=== PATIENT | male | born 1960 | race Caucasian/White ===

== ENCOUNTER 2022-01-28 07:31 | Outpatient (REF) | payer OTHER, SELFPAY ==
[2022-01-28 12:05] LABS: MANUAL DIFF FLAG NO
[2022-01-28 12:06] LABS: Basophils Percent Auto 0.5 % (0-2); Eosinophils Absolute Auto 0.3 X10*3/uL (0.0-0.4); Eosinophils Percent Auto 5.9 % (0-4); Hematocrit 45.4 % (42.0-52.0); Hemoglobin 15.5 g/dl (14.0-18.0); Imm Gran Abs Auto 0.01 X10*3/uL (0.00-0.03); Imm Gran Pct Auto 0.2 % (0.0-0.4); Lymphocytes Absolute Auto 1.8 X10*3/uL (1.2-4.9); Lymphocytes Percent Auto 32.9 % (20-40); Mean Corpuscular HGB Conc 34.1 g/dl (31.0-36.0); Mean Corpuscular Hemoglobin 28.4 pg (27.0-33.0); Mean Corpuscular Volume 83.3 fL (80.0-98.0); Mean Platelet Volume 9.9 fL (9.4-12.4); Monocytes Absolute Auto 0.6 X10*3/uL (0.1-1.2); Monocytes Percent Auto 11.1 % (2-11); Neutrophils Absolute Auto 2.8 x10*3/uL (2.0-8.3); Neutrophils Percent Auto 49.4 % (45-73); Platelet Count 278 X10*3/uL (160-400); Red Blood Count 5.45 X10*6/uL (4.60-5.80); Red Cell Distribution Width 12.5 % (11.0-16.0); White Blood Count 5.6 X10*3/uL (4.8-10.8)
[2022-01-28 12:29] LABS: Alanine Aminotransferase 33 U/L (0-40); Albumin Level 4.5 g/dL (3.5-5.0); Alkaline Phosphatase 92 U/L (39-117); Anion Gap 16 (12-20); Aspartate Amino Transferase 28 U/L (5-37); Bilirubin Total 2.2 mg/dL (0.0-1.0); Blood Urea Nitrogen 23 mg/dL (9-16); Calcium 9.6 mg/dL (8.4-10.2); Carbon Dioxide 29 mmol/L (22-29); Chloride 98 mmol/L (96-108); Cholesterol 128 mg/dL; Estimated Glomerular Filt Rate > 60; Glucose Fasting 96 mg/dL (60-99); HDL Cholesterol 45 mg/dL; LDL Cholesterol Calculated 67 mg/dl; Potassium 4.2 mmol/L (3.3-5.1); Sodium 139 mmol/L (135-145); Total Protein 6.9 g/dL (6.5-8.0); Triglycerides 84 mg/dL
[2022-01-28 12:38] LABS: Estimated Average Glucose 105 mg/dL; Hemoglobin A1c % 5.3 %
[2022-01-28 12:52] LABS: TSH reflex Free T4 1.47 uIU/mL (0.32-4.0)
[2022-02-02 16:26] LABS: Vitamin D 25-OH, D2 <4 ng/mL; Vitamin D 25-OH, D3 25 ng/mL; Vitamin D 25-OH, Total 25 ng/mL (30-100)
== END 2022-01-28 07:32 | disposition home or self-care (01) ==
LOC: HO.HMGCLDS 07:31
PROVIDERS: PCP Internal Medicine; Visit Provider Internal Medicine
DX: R73.03 Prediabetes (principal); I10 Essential (primary) hypertension; E78.9 Disorder of lipoprotein metabolism, unspecified; E55.9 Vitamin D deficiency, unspecified; Z76.89 Persons encountering health services in other specified circumstances
CPT/HCPCS: 36415; 80053; 80061; 82306; 83036; 84443; 85025

== ENCOUNTER 2022-07-14 08:42 | Outpatient (REF) | payer OTHER, SELFPAY ==
[2022-07-14 12:13] LABS: Estimated Average Glucose 108 mg/dL; Hemoglobin A1c % 5.4 %
[2022-07-14 12:20] LABS: Alanine Aminotransferase 46 U/L (0-40); Albumin Level 4.5 g/dL (3.5-5.0); Alkaline Phosphatase 100 U/L (39-117); Anion Gap 12 (12-20); Aspartate Amino Transferase 29 U/L (5-37); Blood Urea Nitrogen 17 mg/dL (9-16); Calcium 9.6 mg/dL (8.4-10.2); Carbon Dioxide 30 mmol/L (22-29); Chloride 102 mmol/L (96-108); Cholesterol 157 mg/dL; Estimated Glomerular Filt Rate > 60; Glucose Fasting 92 mg/dL (60-99); HDL Cholesterol 43 mg/dL; LDL Cholesterol Calculated 90 mg/dl; Potassium 4.1 mmol/L (3.3-5.1); Sodium 140 mmol/L (135-145); Total Protein 6.8 g/dL (6.5-8.0); Triglycerides 124 mg/dL
== END 2022-07-14 08:43 | disposition home or self-care (01) ==
LOC: HO.HMGCLDS 08:42
PROVIDERS: PCP Internal Medicine; Visit Provider Internal Medicine
DX: E78.9 Disorder of lipoprotein metabolism, unspecified (principal); R73.03 Prediabetes; I10 Essential (primary) hypertension
CPT/HCPCS: 36415; 80053; 80061; 83036

== ENCOUNTER 2023-01-09 07:27 | Outpatient (REF) | payer OTHER, SELFPAY ==
[2023-01-09 09:32] LABS: Alanine Aminotransferase 30 U/L (0-40); Albumin Level 4.5 g/dL (3.5-5.0); Alkaline Phosphatase 99 U/L (39-117); Anion Gap 14 (12-20); Aspartate Amino Transferase 23 U/L (5-37); Blood Urea Nitrogen 18 mg/dL (9-16); Calcium 9.4 mg/dL (8.4-10.2); Carbon Dioxide 27 mmol/L (22-29); Chloride 104 mmol/L (96-108); Cholesterol 133 mg/dL (<200); Estimated Glomerular Filt Rate > 60; Glucose Fasting 95 mg/dL (60-99); Glucose Random 95 mg/dL (60-115); HDL Cholesterol 48 mg/dL (>40); LDL Cholesterol Calculated 72 mg/dL (<100); Potassium 3.9 mmol/L (3.3-5.1); Sodium 141 mmol/L (135-145); Triglycerides 66 mg/dL (<150)
[2023-01-14 12:53] LABS: Beta-2 Glycoprotein IgA <2.0 U/mL (<20.0); Beta-2 Glycoprotein IgG 4.5 U/mL (<20.0); Beta-2 Glycoprotein IgM 71.7 U/mL (<20.0)
== END 2023-01-09 07:28 | disposition home or self-care (01) ==
LOC: HO.LAB 07:27
PROVIDERS: PCP Internal Medicine; Visit Provider Internal Medicine
DX: I10 Essential (primary) hypertension (principal); R73.03 Prediabetes; E78.9 Disorder of lipoprotein metabolism, unspecified
CPT/HCPCS: 36415; 80053; 80061; 86146

== ENCOUNTER 2023-01-12 08:15 | Outpatient (AMB) | payer OTHER, SELFPAY ==
[2023-01-12 08:25] VITALS: BP 136/80; PULSE 53; O2SAT 97; BMI 27.6
--- NOTE | 2023-01-12 08:25 | MHC.PC.OV ---
Vital Signs 01/12/23 08:25 Height 5 ft 7 in Weight 176 lb 4 oz BMI 27.6 BP 136/80 Blood Pressure Location Lt brachial Pulse 53 Pulse Source Pulse Oximeter Pulse Oximetry (%) 97 Oxygen Delivery Method Room Air Intake Visit Reasons: 6m follow up Allergies Penicillins Adverse Reaction (Mild, Verified 01/12/23 08:28) Hives Medication List - Last Reconciled 01/12/23 by Luis Cifuentes MD atorvastatin 20 mg PO DAILY lisinopril-hydrochlorothiazide 10-12.5 mg 1 tab PO DAILY Tobacco use date assessed: 01/12/23 Fall risk assessment: No Falls in past year Last assessed Fall Risk: 01/12/23 Dental Screening Dental Screen Date: 01/12/23 Did you have a dental visit in the last 12 months?: Yes Did you have a dental problem in the last 6 months where you did not have access to dental care?: No Was dental information given to patient?: Patient has dentist HPI 6m follow up HPI Details Patient is 62-year-old gentlemen came in today for his regular 6 month follow-up appointment Patient is doing well he is taking all his medications Blood pressure is stable Labs done recently reviewed with the patient his total bilirubin continued to be elevated because of keep it syndrome Rest of labs are within normal limit. 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 I have added x-ray with his next set of lab in 6 months. Patient comes for follow-up every 6 months and he has appointment in June for physical examination. [facility] Social History Housing: House Patient Tobacco Use Status: Former Tobacco user e-Cigarette/Vaping Use: Never Used service: No Current occupational status: employed Cognitive needs: No Hearing needs: No Vision needs: Yes Questionnaire PHQ-9 Over the last 2 weeks, how often have you been bothered by any of the following problems? 1. Little interest or pleasure in doing things: not at all 2. Feeling down, depressed, or hopeless: not at all 3. Trouble falling or staying asleep, or sleeping too much: several days 4. Feeling tired or having little energy: not at all 5. Poor appetite or overeating: not at all 6. Feeling bad about yourself - or that you are a failure or have let yourself or your family down: not at all 7. Trouble concentrating on things, such as reading the newspaper or watching television: not at all 8. Moving or speaking so slowly that other people could have noticed. Or the opposite - being so fidgety or restless that you have been moving around a lot more than usual: not at all 9. Thoughts that you would be better off or of hurting yourself in some way: not at all Total score: 1 Depression Screening Interpretation: Negative Depression Screening Done: Yes 84728 - PHQ-9 Billing: Yes Source: Developed by Drs. Abhijeet Carlisle, Saloni Spencer, Tevin Locke and colleagues, with an educational soniya from [employer]. Thrive Questionnaire Date Thrive assessed: 01/21/22 AUDIT C Alcohol Use Questionnaire (AUDIT-C) 1. How often do you have a drink containing alcohol?: Monthly or less 2. How many drinks containing alcohol do you have on a typical day when you are drinking?: 1 or 2 3. How often do you have six or more drinks on one occasion?: Never Total Score: 1 Score Reviewed/Action Taken: Yes BELA-7 AMB Questionnaire BELA-7 Date BELA - 7 assessed: 01/21/22 Source: Developed by Drs. Abhijeet Carlisle, Saloni Spencer, Tevin Locke and colleagues, with an educational soniya from [employer]. Review of Systems Const Denies chills and Denies fever(s) ENT Denies epistaxis and Denies nasal discharge Card Denies chest pain Resp Denies chest congestion, Denies cough and Denies hemoptysis GI Denies diarrhea and Denies nausea Skin/Breast Denies rash Neuro Reports no additional complaints Psych Reports no additional complaints Endo Reports no additional complaints Physical exam (Primary Care) Vital Signs: Last Vital Signs Pulse 53 01/12/23 08:25 BP 136/80 01/12/23 08:25 Pulse Ox 97 01/12/23 08:25 Oxygen Delivery Method Room Air 01/12/23 08:25 BMI result Body Mass Index 27.6 Tobacco/Smoking Status: Tobacco use Status Tobacco use date assessed 01/12/23 01/12/23 08:28 Patient Tobacco Use Status Former Tobacco user 01/12/23 08:28 e-Cigarette/Vaping Use Never Used 01/12/23 08:28 Depression Screening Interpretation: Negative Thrive Assessment: Date of Thrive Assessment Date Thrive assessed 01/21/22 01/12/23 08:28 Const General: cooperative, comfortable and no acute distress Orientation/consciousness: patient oriented x3 HENMT Head: Yes normocephalic Eyes General: appearance normal, both eyes and all related structures Neck Neck: Yes supple Resp Effort & Inspection: normal respiratory effort, no cough and no stridor Cardio Rhythm: regular rhythm Heart sounds: S1 normal heart sound present and S2 normal heart sound present Back/Spine/Pelvis Other: No back pain at this time Skin General skin exam: turgor normal Neuro Other: Straight leg negative General: patient oriented x3, tone normal and moves all extremities Extrem Right lower extremity: no edema Left lower extremity: no edema Assessment and Plan Assessment & Plan (1) Hypertension, essential: Code(s): I10 - Essential (primary) hypertension (2) Lipid disorder: Code(s): E78.9 - Disorder of lipoprotein metabolism, unspecified (3) Pre-diabetes: Code(s): R73.03 - Prediabetes (4) Gilbert syndrome: Code(s): E80.4 - Gilbert syndrome (5) Lumbar paraspinal muscle spasm: Code(s): M62.830 - Muscle spasm of back Plan Patient is 62-year-old gentlemen came in today for his regular 6 month follow-up appointment Patient is doing well he is taking all his medications Blood pressure is stable Labs done recently reviewed with the patient his total bilirubin continued to be elevated because of keep it syndrome Rest of labs are within normal limit. 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 I have added x-ray with his next set of lab in 6 months. Patient comes for follow-up every 6 months and he has appointment in June for physical examination. Orders: Orders Complete Blood Count Auto Diff Today E78.9 - Disorder of lipoprotein metabolism, unspecified, E80.4 - Gilbert syndrome, I10 - Essential (primary) hypertension, R73.03 - Prediabetes [facility] [place]. Panel Fast Today E78.9 - Disorder of lipoprotein metabolism, unspecified, E80.4 - Gilbert syndrome, I10 - Essential (primary) hypertension, R73.03 - Prediabetes Lipid Panel 6 Months E78.9 - Disorder of lipoprotein metabolism, unspecified, E80.4 - Gilbert syndrome, I10 - Essential (primary) hypertension, R73.03 - Prediabetes XR lumbar spine 2-3V Today M62.830 - Muscle spasm of back Coding Level of Care Code Est Pt Level 4 (55454) Diagnoses Hypertension, essential I10 Lipid disorder E78.9 Pre-diabetes R73.03 Gilbert syndrome E80.4 Lumbar paraspinal muscle spasm M62.830
== END 2023-01-12 08:49 | disposition home or self-care (01) ==
PROVIDERS: Visit Provider Internal Medicine
DX: I10 Essential (primary) hypertension (principal); E78.9 Disorder of lipoprotein metabolism, unspecified; R73.03 Prediabetes; E80.4 Gilbert syndrome; M62.830 Muscle spasm of back
CPT/HCPCS: 99214

== ENCOUNTER 2023-01-28 09:06 | Outpatient (AMB) | payer OTHER, SELFPAY ==
--- NOTE | 2023-01-28 08:55 | A.OFFPC_ITS ---
Intake Visit Reasons: Discuss Labs~ Allergies Penicillins Adverse Reaction (Mild, Verified 01/28/23 08:56) Hives Medication List - Last Reconciled 01/28/23 by Luis Cifuentes MD atorvastatin 20 mg PO DAILY lisinopril-hydrochlorothiazide 10-12.5 mg 1 tab PO DAILY Tobacco use date assessed: 01/28/23 Fall risk assessment: No Falls in past year Last assessed Fall Risk: 01/28/23 Dental Screening Dental Screen Date: 01/28/23 Did you have a dental visit in the last 12 months?: Yes Did you have a dental problem in the last 6 months where you did not have access to dental care?: No Was dental information given to patient?: Patient has dentist HPI Discuss Labs~ HPI Details Patient is 62-year-old gentleman we set up this telephone visit to talk about level treat test Which I am not sure who ordered. We tried to figure it out through lab , and even they could not tell us. However the test is abnormal so we have to address it. It is beta 2 GPI IgM which is elevated. Patient have no history of clotting disorder his platelets are within normal limit I am repeating the test again if it came back abnormal again patient will have consultation with Hematology. There is a possibility that lip artery has made a mistake, patient tells me the day he went for blood test there were lot of problems going on with their system. [facility] Social History Housing: House Patient Tobacco Use Status: Former Tobacco user e-Cigarette/Vaping Use: Never Used service: No Current occupational status: employed Cognitive needs: No Hearing needs: No Vision needs: Yes Questionnaire Thrive Questionnaire Date Thrive assessed: 01/21/22 AUDIT C Alcohol Use Questionnaire (AUDIT-C) 1. How often do you have a drink containing alcohol?: Monthly or less 2. How many drinks containing alcohol do you have on a typical day when you are drinking?: 1 or 2 3. How often do you have six or more drinks on one occasion?: Never Total Score: 1 Score Reviewed/Action Taken: Yes BELA-7 AMB Questionnaire BELA-7 Date BELA - 7 assessed: 01/21/22 Source: Developed by Drs. Abhijeet Carlisle, Saloni Spencer, Tevin Locke and colleagues, with an educational soniya from [employer]. Review of Systems Const All systems reviewed & are unremarkable except as noted in HPI and below Physical exam (Primary Care) Tobacco/Smoking Status: Tobacco use Status Tobacco use date assessed 01/28/23 01/28/23 08:58 Patient Tobacco Use Status Former Tobacco user 01/28/23 08:58 e-Cigarette/Vaping Use Never Used 01/28/23 08:58 Thrive Assessment: Date of Thrive Assessment Date Thrive assessed 01/21/22 01/28/23 08:58 Telehealth Telehealth Location of provider rendering services: practice address Location of patient: address on file Patient Identification confirmed using: Name, : Yes Telehealth method: voice only Patient verbally consented to treatment: Yes Patient verbally consented to billing insurance company: Yes Patient informed of any privacy concerns related to visit: Yes Minutes spent on Phone/Video with Pt.: 12 Results Reviewed Results Reviewed: Laboratory Tests 01/09/23 08:13 Beta-2-GPI IgM Ab 71.7 H Assessment and Plan Assessment & Plan (1) Abnormal laboratory test: Code(s): R89.9 - Unspecified abnormal finding in specimens from other organs, systems and tissues Plan Patient is 62-year-old gentleman we set up this telephone visit to talk about level treat test Which I am not sure who ordered. We tried to figure it out through lab , and even they could not tell us. However the test is abnormal so we have to address it. It is beta 2 GPI IgM which is elevated. Patient have no history of clotting disorder his platelets are within normal limit I am repeating the test again if it came back abnormal again patient will have consultation with Hematology. There is a possibility that lip artery has made a mistake, patient tells me the day he went for blood test there were lot of problems going on with their system. Orders: Orders Beta-2 Glycoprotein Antibody Today R89.9 - Unspecified abnormal finding in specimens from other organs, systems and tissues Coding Level of Care Code Tele Est Pt Level 3 (10334) Diagnoses Abnormal laboratory test R89.9
== END 2023-01-28 11:30 | disposition home or self-care (01) ==
PROVIDERS: PCP Internal Medicine; Visit Provider Internal Medicine
DX: R89.9 Unspecified abnormal finding in specimens from other organs, systems and tissues (principal)
CPT/HCPCS: 99442

== ENCOUNTER 2023-01-30 07:12 | Outpatient (REF) | payer OTHER, SELFPAY ==
[2023-01-30 08:03] LABS: Alanine Aminotransferase 32 U/L (0-40); Albumin Level 4.2 g/dL (3.5-5.0); Alkaline Phosphatase 91 U/L (39-117); Anion Gap 9 (12-20); Aspartate Amino Transferase 23 U/L (5-37); Bilirubin Total 1.9 mg/dL (0.0-1.0); Blood Urea Nitrogen 22 mg/dL (9-16); Carbon Dioxide 29 mmol/L (22-29); Chloride 104 mmol/L (96-108); Cholesterol 129 mg/dL (<200); Estimated Glomerular Filt Rate > 60; Glucose Fasting 101 mg/dL (60-99); HDL Cholesterol 45 mg/dL (>40); LDL Cholesterol Calculated 71 mg/dL (<100); Potassium 3.8 mmol/L (3.3-5.1); Sodium 138 mmol/L (135-145); Total Protein 6.7 g/dL (6.5-8.0); Triglycerides 69 mg/dL (<150)
[2023-02-04 21:54] LABS: Beta-2 Glycoprotein IgA <2.0 U/mL (<20.0); Beta-2 Glycoprotein IgG 3.3 U/mL (<20.0); Beta-2 Glycoprotein IgM 49.3 U/mL (<20.0)
== END 2023-01-30 07:13 | disposition home or self-care (01) ==
LOC: HO.LAB 07:12
PROVIDERS: PCP Internal Medicine; Visit Provider Internal Medicine
DX: I10 Essential (primary) hypertension (principal); E78.9 Disorder of lipoprotein metabolism, unspecified; R73.03 Prediabetes; E80.4 Gilbert syndrome; R89.9 Unspecified abnormal finding in specimens from other organs, systems and tissues
CPT/HCPCS: 36415; 80053; 80061; 86146

== ENCOUNTER → 2023-03-11 11:06 | Outpatient (BNV) | payer OTHER, SELFPAY | PROVIDERS: PCP Internal Medicine; Visit Provider Internal Medicine Medical Oncology | DX: R89.9 Unspecified abnormal finding in specimens from other organs, systems and tissues (principal) | CPT/HCPCS: 99204; 99213 ==

== ENCOUNTER 2023-06-25 08:06 | Outpatient (AMB) | payer OTHER, SELFPAY ==
[2023-06-25 08:08] VITALS: BP 128/82; PULSE 69; TEMP 36.6; O2SAT 97; BMI 27.2
--- NOTE | 2023-06-25 08:08 | MHC.OFFWIV ---
Intake Vital Signs 06/25/23 08:08 Height 5 ft 7 in Weight 173 lb 8 oz BMI 27.2 BP 128/82 Blood Pressure Location Lt brachial Position Sitting Pulse 69 Pulse Source Pulse Oximeter Temp 98 F Temp Source Oral Pulse Oximetry (%) 97 Oxygen Delivery Method Room Air Intake Visit Reasons: EP Diarrhea 1 week Intake Note: Pt is here today for diarrhea, pt states he been having it for over a wk now. Patient Tobacco Use Status: Former Tobacco user Allergies Penicillins Adverse Reaction (Mild, Verified 06/25/23 08:15) Hives Do you need a note to return to daycare/school/sports/work: No HPI HPI Comments History of Present Illness Details 62 y/o male patient who presents to walk in clinic with c/o Diarrhea for over 1 week now. Reports using Imodium with no relief. Denies Nausea, vomiting, fevers or chills. 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 Denies blood in the stools. PFSH Medical History Hyperglycemia High blood pressure Family History Mother Liver cancer Ovarian cancer Social History Household Members: Spouse Housing: House Patient Tobacco Use Status: Former Tobacco user e-Cigarette/Vaping Use: Never Used service: No Current occupational status: unemployed and retired Cognitive needs: No Hearing needs: No Vision needs: Yes Review of Systems Const All systems reviewed & are unremarkable except as noted in HPI and below Physical Exam Vital Signs: Last Vital Signs Temp 98 F 06/25/23 08:08 Pulse 69 06/25/23 08:08 BP 128/82 06/25/23 08:08 Pulse Ox 97 06/25/23 08:08 Oxygen Delivery Method Room Air 06/25/23 08:08 BMI result Body Mass Index 27.2 Const General: comfortable and no acute distress Orientation/consciousness: patient oriented x3 GI Inspection: No distended Palpation (GI): Soft to palpation, not firm, nontender, no guarding and No hepatosplenomegaly present Auscultation: Hyperactive bowel sounds present Rectal Exam - Male: Yes deferred Neuro General: patient oriented x3, gait normal and moves all extremities Psych Speech and movement: Normal speech and movement present Assessment & Plan Assessment & Plan (1) Gastritis: Code(s): K29.70 - Gastritis, unspecified, without bleeding Qualifiers: Gastritis type: other gastritis Chronicity: acute Gastritis bleeding: without bleeding Qualified Code(s): K29.00 - Acute gastritis without bleeding Plan: - Avoid Oily, greasy foods -Avoid Spicy foods - Hydrate with plenty of water - Take medicine as directed. Medications: New metronidazole 500 mg PO BID 14 days 28 tabs 0RF K29.00 - Acute gastritis without bleeding clarithromycin 500 mg PO BID 14 days 28 tabs 0RF K29.00 - Acute gastritis without bleeding pantoprazole 40 mg PO BID 14 days 28 tabs 0RF K29.00 - Acute gastritis without bleeding Coding Level of Care Code Est Pt Level 3 (05867) Diagnoses Other acute gastritis without hemorrhage K29.00 Gastritis type: other gastritis Chronicity: acute Gastritis bleeding: without bleeding Time Spent (min) 15
== END 2023-06-25 08:46 | disposition home or self-care (01) ==
PROVIDERS: PCP Internal Medicine; Visit Provider Nurse Practitioner Family
DX: K29.00 Acute gastritis without bleeding (principal)
CPT/HCPCS: 99213

== ENCOUNTER 2023-07-20 10:13 | Outpatient (AMB) | payer OTHER, SELFPAY ==
[2023-07-20 10:17] VITALS: BP 118/72; PULSE 71; O2SAT 97; BMI 27.3
--- NOTE | 2023-07-20 10:17 | MHC.PC.OV ---
Vital Signs 07/20/23 10:17 Height 5 ft 7 in Weight 174 lb 2 oz BMI 27.3 BP 118/72 Blood Pressure Location Rt brachial Position Sitting Pulse 71 Pulse Source Pulse Oximeter Pulse Oximetry (%) 97 Oxygen Delivery Method Room Air Intake Visit Reasons: PE Allergies Penicillins Adverse Reaction (Mild, Verified 06/25/23 08:15) Hives Medication List - Last Reconciled 07/20/23 by Luis Cifuentes MD atorvastatin 20 mg PO DAILY cetirizine (Zyrtec) 10 mg PO DAILY PRN lisinopril-hydrochlorothiazide 10-12.5 mg 1 tab PO DAILY Tobacco use date assessed: 07/20/23 Fall risk assessment: No Falls in past year Last assessed Fall Risk: 07/20/23 Dental Screening Dental Screen Date: 07/20/23 Did you have a dental visit in the last 12 months?: Yes Did you have a dental problem in the last 6 months where you did not have access to dental care?: No Was dental information given to patient?: Patient has dentist HPI PE HPI Details Patient is 62-year-old gentlemen came in today for his annual physical examination Patient is doing well he is taking all his medications Blood pressure is stable Colonoscopy will be in 2030 Patient is prediabetic we are monitoring his fasting sugar Blood pressure is stable, he is taking lisinopril hydrochlorothiazide 10-12.5 mg Patient says that sometime and is gardening and he sitting down for prolonged periods of time and when he stands up he feels dizzy He will let me know if the problem gets worse we will have to reduce his blood pressure medication Meanwhile I would recommend to hydrate properly daily Lipid disorder continue atorvastatin 20 mg Patient will return in 6 months for follow-up appointment labs are needed before visit Clotting disorder patient is seeing Dr. Varela, last visit was in May [facility] Medical History Hyperglycemia High blood pressure Family History Mother Liver cancer Ovarian cancer Social History Household Members: Spouse Housing: House Patient Tobacco Use Status: Former Tobacco user e-Cigarette/Vaping Use: Never Used service: No Current occupational status: unemployed and retired Cognitive needs: No Hearing needs: No Vision needs: Yes Questionnaire PHQ-9 Over the last 2 weeks, how often have you been bothered by any of the following problems? 1. Little interest or pleasure in doing things: not at all 2. Feeling down, depressed, or hopeless: not at all 3. Trouble falling or staying asleep, or sleeping too much: several days 4. Feeling tired or having little energy: not at all 5. Poor appetite or overeating: not at all 6. Feeling bad about yourself - or that you are a failure or have let yourself or your family down: not at all 7. Trouble concentrating on things, such as reading the newspaper or watching television: not at all 8. Moving or speaking so slowly that other people could have noticed. Or the opposite - being so fidgety or restless that you have been moving around a lot more than usual: not at all 9. Thoughts that you would be better off or of hurting yourself in some way: not at all Total score: 1 Depression Screening Interpretation: Negative Depression Screening Done: Yes 17803 - PHQ-9 Billing: Yes Source: Developed by Drs. Abhijeet Carlisle, Saloni Spencer, Tevin Locke and colleagues, with an educational soniya from [employer]. Thrive Questionnaire Date Thrive assessed: 07/20/23 I am a: Patient What is your living situation today?: I have a steady place to live Within the past 12 months, did the food you bought not last and you didn't have the money to get more?: Never true Within the past 12 months, did you worry whether your food would run out before you got money to buy more?: Never true Do you have trouble paying for medicines?: No Do you have trouble getting transportation to medical appointments?: No Do you have trouble paying your heating and electricity bill?: No Do you have trouble taking care of your child, family member or friend?: No Do you have trouble with day-to-day activities such as bathing, preparing meals, shopping, managing finances, etc.?: No Are you currently unemployed and looking for a job?: No Are you interested in more education?: No Please select the resources that you would like help with: None Currently or been in a relationship where the following occur: no concerns reported THRIVE Score: 0 AUDIT C Alcohol Use Questionnaire (AUDIT-C) 1. How often do you have a drink containing alcohol?: Monthly or less 2. How many drinks containing alcohol do you have on a typical day when you are drinking?: 1 or 2 3. How often do you have six or more drinks on one occasion?: Never Total Score: 1 Score Reviewed/Action Taken: Yes BELA-7 AMB Questionnaire BELA-7 Date BELA - 7 assessed: 07/20/23 Feeling nervous, anxious, or on edge: 0 = Not at all Not being able to stop or control worryin = Not at all Worrying too much about different things: 0 = Not at all Trouble relaxin = Several days Being so restless that it is hard to sit still: 0 = Not at all Becoming easily annoyed or irritable: 0 = Not at all Feeling afraid as if something awful might happen: 0 = Not at all Total BELA-7 score (0-4 normal; 5-9 mild; 10-14 moderate; 15-21 severe): 1 Source: Developed by Drs. Abhijeet Carlisle, Saloni Spencer, Tvein Locke and colleagues, with an educational soniya from [employer]. BELA-7 Assessment Billing BELA-7 Assessment Tool: BELA-7 Assessment 76010 Review of Systems Const Denies chills, Denies fever(s) and Denies headache(s) Eyes Denies blurry vision ENT Denies headache(s), Denies nasal discharge, Denies nasal obstruction, Denies odynophagia and Denies sinus pain Card Denies chest pain at rest and Denies chest pain with activity Resp Denies cough and Denies hemoptysis GI Denies diarrhea, Denies odynophagia, Denies vomiting and Denies hematemesis Reports as per HPI Musc Denies abnormal gait Skin/Breast Reports as per HPI Neuro Denies Neuro-related abnormal movements, Denies Abnormal speech present, Denies abnormal gait, Denies headache(s) and Denies Sensory deficit (Neuro) Psych Denies mood swings and Denies paranoia Endo Reports as per HPI Gabino/Lymph Reports as per HPI Aller/Immun Reports as per HPI Physical exam (Primary Care) Vital Signs: Last Vital Signs Pulse 71 07/20/23 10:17 BP 118/72 04/23/24 10:17 Pulse Ox 97 07/20/23 10:17 Oxygen Delivery Method Room Air 07/20/23 10:17 BMI result Body Mass Index 27.3 Tobacco/Smoking Status: Tobacco use Status Tobacco use date assessed 07/20/23 07/20/23 10:20 Patient Tobacco Use Status Former Tobacco user 07/20/23 10:20 e-Cigarette/Vaping Use Never Used 07/20/23 10:20 PHQ-9: PHQ-9 Score PHQ-9: Total score 1 07/20/23 10:31 Depression Screening Interpretation: Negative Thrive Assessment: Date of Thrive Assessment Date Thrive assessed 07/20/23 07/20/23 10:22 Currently or been in a relationship where the following occur: no concerns reported Const General: cooperative, comfortable and no acute distress Orientation/consciousness: patient oriented x3 HENMT Head: Yes normocephalic and Yes atraumatic Eyes General: appearance normal, both eyes and all related structures Pupils: Equal, round and reactive pupils present EOM: EOMs intact bilaterally Neck Neck: Yes supple and No lymphadenopathy Thyroid: Thyroid normal Lymphatic: no lymphadenopathy noted Resp Effort & Inspection: normal respiratory effort and able to speak in complete sentences Auscultation: clear to auscultation bilaterally Cardio Heart sounds: S1 normal heart sound present and S2 normal heart sound present GI Palpation (GI): Soft to palpation and nontender Auscultation: normal bowel sounds General: Yes no CVA tenderness Back/Spine/Pelvis Back: no CVA tenderness Skin General skin exam: elasticity normal and turgor normal Neuro General: patient oriented x3 and gait normal Cranial nerves: Yes Equal, round and reactive pupils present Speech: No Abnormal speech present Sensory Exam: No Sensory deficit (Neuro) Coordination: tandem gait normal and Romberg test negative Extrem General: Yes normal exam except as noted and No edema Assessment and Plan Assessment & Plan (1) Encounter for general adult medical examination with abnormal findings: Code(s): Z00.01 - Encounter for general adult medical examination with abnormal findings (2) Lipid disorder: Code(s): E78.9 - Disorder of lipoprotein metabolism, unspecified (3) Hypertension, essential: Code(s): I10 - Essential (primary) hypertension (4) Pre-diabetes: Code(s): R73.03 - Prediabetes (5) Gilbert syndrome: Code(s): E80.4 - Gilbert syndrome (6) Clotting disorder: Code(s): D68.9 - Coagulation defect, unspecified Plan Patient is 62-year-old gentlemen came in today for his annual physical examination Patient is doing well he is taking all his medications Blood pressure is stable Colonoscopy will be in 2030 Patient is prediabetic we are monitoring his fasting sugar Blood pressure is stable, he is taking lisinopril hydrochlorothiazide 10-12.5 mg Patient says that sometime and is gardening and he sitting down for prolonged periods of time and when he stands up he feels dizzy He will let me know if the problem gets worse we will have to reduce his blood pressure medication Meanwhile I would recommend to hydrate properly daily Lipid disorder continue atorvastatin 20 mg Patient will return in 6 months for follow-up appointment labs are needed before visit Clotting disorder patient is seeing Dr. Varela, last visit was in May Orders: Orders Lipid Panel 6 Months D68.9 - Coagulation defect, unspecified, E78.9 - Disorder of lipoprotein metabolism, unspecified, E80.4 - Gilbert syndrome, I10 - Essential (primary) hypertension, R73.03 - Prediabetes, Z00.01 - Encounter for general adult medical examination with abnormal findings Hemoglobin A1c 6 Months R73.03 - Prediabetes Prostate Specific Antigen 6 Months D68.9 - Coagulation defect, unspecified, E78.9 - Disorder of lipoprotein metabolism, unspecified, E80.4 - Gilbert syndrome, I10 - Essential (primary) hypertension, R73.03 - Prediabetes, Z00.01 - Encounter for general adult medical examination with abnormal findings Coding Level of Care Code Est Pt Prev Care 40-64y(81186) Diagnoses Encounter for general adult medical examination with abnormal findings Z00.01 Lipid disorder E78.9 Hypertension, essential I10 Pre-diabetes R73.03 Gilbert syndrome E80.4 Clotting disorder D68.9 Additional Codes BELA-7 Assessment Billing - BELA-7 Assessment Tool: BELA-7 Assessment 21504 ([id number])
== END 2023-07-20 10:35 | disposition home or self-care (01) ==
PROVIDERS: Visit Provider Internal Medicine
DX: Z00.00 Encounter for general adult medical examination without abnormal findings (principal); E78.9 Disorder of lipoprotein metabolism, unspecified; I10 Essential (primary) hypertension; D68.9 Coagulation defect, unspecified; R73.03 Prediabetes; E80.4 Gilbert syndrome
CPT/HCPCS: 99396

== ENCOUNTER 2023-09-10 08:01 | Outpatient (AMB) | payer OTHER, SELFPAY ==
--- NOTE | 2023-09-10 08:03 | A.OFFPC_ITS ---
Vital Signs 09/10/23 08:06 Height 5 ft 7 in Weight 177 lb BMI 27.7 BP 128/86 Blood Pressure Location Rt brachial Position Sitting Pulse 70 Pulse Source Pulse Oximeter Pulse Oximetry (%) 99 Oxygen Delivery Method Room Air Intake Visit Reasons: light headed Allergies Penicillins Adverse Reaction (Mild, Verified 09/10/23 08:06) Hives Medication List - Last Reconciled 09/10/23 by Luis Cifuentes MD atorvastatin 20 mg PO DAILY cetirizine (Zyrtec) 10 mg PO DAILY PRN lisinopril-hydrochlorothiazide 10-12.5 mg 1 tab PO DAILY Tobacco use date assessed: 07/20/23 Dental Screening Dental Screen Date: 07/20/23 HPI light headed HPI Details Patient is 62-year-old gentleman who had stomach discomfort May of this year He was evaluated in our walk-in clinic and was prescribed metronidazole, clarithromycin and pantoprazole for 14 days After that he started having diarrhea off and on Patient is not aware what triggers the diarrhea but currently he is feeling fine. There is no abdominal pain no nausea no vomiting no fever no chills He is eating yogurt every day I have also told him to add probiotic daily and see if that makes any difference And also to keep a food diary to correlate his symptoms with food. He is also complaining of feeling lightheaded and dizzy when he gets up really fast and also when he moves his head On examination is left ear has slight redness to it, patient was instructed to stop using Q-tips I have sent meclizine for the days he is feeling more dizzy. He may take that as needed. Also to make sure that he is well hydrated every day [facility] Medical History Hyperglycemia High blood pressure Family History Mother Liver cancer Ovarian cancer Social History Household Members: Spouse Housing: House Patient Tobacco Use Status: Former Tobacco user e-Cigarette/Vaping Use: Never Used service: No Current occupational status: unemployed and retired Cognitive needs: No Hearing needs: No Vision needs: Yes Questionnaire Thrive Questionnaire Date Thrive assessed: 07/20/23 BELA-7 AMB Questionnaire BELA-7 Date BELA - 7 assessed: 07/20/23 Source: Developed by Drs. Abhijeet Carlisle, Saloni Spencer, Tevin Locke and colleagues, with an educational soniya from [employer]. Review of Systems Const Denies chills and Denies fever(s) ENT Denies epistaxis and Denies nasal discharge Card Denies chest pain Resp Denies chest congestion, Denies cough and Denies hemoptysis GI Denies nausea Skin/Breast Denies rash Neuro Reports no additional complaints Psych Reports no additional complaints Endo Reports no additional complaints Physical exam (Primary Care) Vital Signs: Last Vital Signs Pulse 70 09/10/23 08:06 BP 128/86 09/10/23 08:06 Pulse Ox 99 09/10/23 08:06 Oxygen Delivery Method Room Air 09/10/23 08:06 BMI result Body Mass Index 27.7 Tobacco/Smoking Status: Tobacco use Status Tobacco use date assessed 07/20/23 09/10/23 08:04 Patient Tobacco Use Status Former Tobacco user 09/10/23 08:04 e-Cigarette/Vaping Use Never Used 09/10/23 08:04 Thrive Assessment: Date of Thrive Assessment Date Thrive assessed 07/20/23 09/10/23 08:04 Const General: cooperative, comfortable and no acute distress Orientation/consciousness: patient oriented x3 HENMT Head: Yes normocephalic Eyes General: appearance normal, both eyes and all related structures Neck Neck: Yes supple Resp Effort & Inspection: normal respiratory effort, no cough and no stridor Cardio Rhythm: regular rhythm Heart sounds: S1 normal heart sound present and S2 normal heart sound present Skin General skin exam: turgor normal Neuro General: patient oriented x3, tone normal and moves all extremities Extrem Right lower extremity: no edema Left lower extremity: no edema Assessment and Plan Assessment & Plan (1) Chronic diarrhea: Code(s): K52.9 - Noninfective gastroenteritis and colitis, unspecified (2) Benign positional vertigo: Code(s): H81.10 - Benign paroxysmal vertigo, unspecified ear Plan Patient is 62-year-old gentleman who had stomach discomfort May of this year He was evaluated in our walk-in clinic and was prescribed metronidazole, clarithromycin and pantoprazole for 14 days After that he started having diarrhea off and on Patient is not aware what triggers the diarrhea but currently he is feeling fine. There is no abdominal pain no nausea no vomiting no fever no chills He is eating yogurt every day I have also told him to add probiotic daily and see if that makes any difference And also to keep a food diary to correlate his symptoms with food. He is also complaining of feeling lightheaded and dizzy when he gets up really fast and also when he moves his head On examination is left ear has slight redness to it, patient was instructed to stop using Q-tips I have sent meclizine for the days he is feeling more dizzy. He may take that as needed. Also to make sure that he is well hydrated every day Medications: New meclizine 25 mg PO DAILY 30 days PRN 30 tabs 0RF dizziness or vertigo Coding Level of Care Code Est Pt Level 3 (27126) Diagnoses Chronic diarrhea K52.9 Benign positional vertigo H81.10
[2023-09-10 08:06] VITALS: BP 128/86; PULSE 70; O2SAT 99; BMI 27.7
== END 2023-09-10 08:43 | disposition home or self-care (01) ==
PROVIDERS: PCP Internal Medicine; Visit Provider Internal Medicine
DX: K52.9 Noninfective gastroenteritis and colitis, unspecified (principal); H81.10 Benign paroxysmal vertigo, unspecified ear
CPT/HCPCS: 99213

== ENCOUNTER 2023-12-28 09:30 | Outpatient (AMB) | payer OTHER, MEDICARE, SELFPAY ==
[2023-12-28 09:36] VITALS: BP 118/70; PULSE 63; O2SAT 97; BMI 29.0
--- NOTE | 2023-12-28 09:36 | A.OFFPC_ITS ---
Vital Signs 12/28/23 09:36 Height 5 ft 7 in Weight 185 lb BMI 29.0 BP 118/70 Blood Pressure Location Lt brachial Position Sitting Pulse 63 Pulse Source Pulse Oximeter Pulse Oximetry (%) 97 Oxygen Delivery Method Room Air Intake Visit Reasons: 6M F/U Allergies Penicillins Adverse Reaction (Mild, Verified 12/28/23 09:36) Hives Medication List - Last Reconciled 12/28/23 by Luis Cifuentes MD atorvastatin 20 mg PO DAILY cetirizine (Zyrtec) 10 mg PO DAILY PRN lisinopril-hydrochlorothiazide 10-12.5 mg 1 tab PO DAILY Tobacco use date assessed: 12/28/23 Fall risk assessment: No Falls in past year Last assessed Fall Risk: 12/28/23 Dental Screening Dental Screen Date: 12/28/23 Did you have a dental visit in the last 12 months?: Yes Did you have a dental problem in the last 6 months where you did not have access to dental care?: No Was dental information given to patient?: Patient has dentist HPI 6M F/U HPI Details Patient is 63-year-old gentleman came in today for his regular six- month follow-up appointment He has seen Hematology last month, note reviewed It seems as if his 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 Hematology is keeping an eye on that Patient have a follow-up appointment in six-month, he will have labs before that I have placed order for labs as well patient may have my lab and Hematology Lab at the same time He will present fasting Pneumonia vaccine given today Blood pressure is well-controlled Allergies are controlled patient is on Zyrtec Lipid disorder: Continue atorvastatin 20 mg daily Follow-up 6 months [facility] Medical History Hyperglycemia High blood pressure Family History Mother Liver cancer Ovarian cancer Social History Household Members: Spouse Housing: House Patient Tobacco Use Status: Former Tobacco user e-Cigarette/Vaping Use: Never Used service: No Current occupational status: unemployed and retired Cognitive needs: No Hearing needs: No Vision needs: Yes Questionnaire PHQ-9 Over the last 2 weeks, how often have you been bothered by any of the following problems? 1. Little interest or pleasure in doing things: not at all 2. Feeling down, depressed, or hopeless: not at all 3. Trouble falling or staying asleep, or sleeping too much: not at all 4. Feeling tired or having little energy: not at all 5. Poor appetite or overeating: not at all 6. Feeling bad about yourself - or that you are a failure or have let yourself or your family down: not at all 7. Trouble concentrating on things, such as reading the newspaper or watching television: not at all 8. Moving or speaking so slowly that other people could have noticed. Or the opposite - being so fidgety or restless that you have been moving around a lot more than usual: not at all 9. Thoughts that you would be better off or of hurting yourself in some way: not at all Total score: 0 Depression Screening Interpretation: Negative Depression Screening Done: Yes 19937 - PHQ-9 Billing: Yes Source: Developed by Drs. Abhijeet Carlisle, Saloni Spencer, Tevin Locke and colleagues, with an educational soniya from [employer]. Thrive Questionnaire Date Thrive assessed: 12/28/23 I am a: Patient What is your living situation today?: I have a steady place to live Within the past 12 months, did the food you bought not last and you didn't have the money to get more?: Never true Within the past 12 months, did you worry whether your food would run out before you got money to buy more?: Never true Do you have trouble paying for medicines?: No Do you have trouble getting transportation to medical appointments?: No Do you have trouble paying your heating and electricity bill?: No Do you have trouble taking care of your child, family member or friend?: No Do you have trouble with day-to-day activities such as bathing, preparing meals, shopping, managing finances, etc.?: No Are you currently unemployed and looking for a job?: No Are you interested in more education?: No Please select the resources that you would like help with: None Currently or been in a relationship where the following occur: No concerns reported THRIVE Score: 0 AUDIT C Alcohol Use Questionnaire (AUDIT-C) 1. How often do you have a drink containing alcohol?: Monthly or less 2. How many drinks containing alcohol do you have on a typical day when you are drinking?: 1 or 2 3. How often do you have six or more drinks on one occasion?: Never Total Score: 1 Score Reviewed/Action Taken: Yes BELA-7 AMB Questionnaire BELA-7 Date BELA - 7 assessed: 12/28/23 Feeling nervous, anxious, or on edge: 0 = Not at all Not being able to stop or control worryin = Not at all Worrying too much about different things: 0 = Not at all Trouble relaxin = Not at all Being so restless that it is hard to sit still: 0 = Not at all Becoming easily annoyed or irritable: 0 = Not at all Feeling afraid as if something awful might happen: 0 = Not at all Total BELA-7 score (0-4 normal; 5-9 mild; 10-14 moderate; 15-21 severe): 0 Source: Developed by Drs. Abhijeet Carlisle, Saloni Spencer, Tevin Locke and colleagues, with an educational soniya from [employer]. BELA-7 Assessment Billing BELA-7 Assessment Tool: BELA-7 Assessment 33369 Review of Systems Const Denies chills and Denies fever(s) ENT Denies epistaxis and Denies nasal discharge Card Denies chest pain Resp Denies chest congestion, Denies cough and Denies hemoptysis GI Denies diarrhea and Denies nausea Skin/Breast Denies rash Neuro Reports no additional complaints Psych Reports no additional complaints Endo Reports no additional complaints Physical exam (Primary Care) Vital Signs: Last Vital Signs Pulse 63 12/28/23 09:36 BP 118/70 12/28/23 09:36 Pulse Ox 97 12/28/23 09:36 Oxygen Delivery Method Room Air 12/28/23 09:36 BMI result Body Mass Index 29.0 Tobacco/Smoking Status: Tobacco use Status Tobacco use date assessed 12/28/23 12/28/23 09:39 Patient Tobacco Use Status Former Tobacco user 12/28/23 09:39 e-Cigarette/Vaping Use Never Used 12/28/23 09:39 PHQ-9: PHQ-9 Score PHQ-9: Total score 0 12/28/23 10:12 Depression Screening Interpretation: Negative Thrive Assessment: Date of Thrive Assessment Date Thrive assessed 12/28/23 12/28/23 09:39 Currently or been in a relationship where the following occur: No concerns reported Const General: cooperative, comfortable and no acute distress Orientation/consciousness: patient oriented x3 HENMT Head: Yes normocephalic Eyes General: appearance normal, both eyes and all related structures Neck Neck: Yes supple Resp Effort & Inspection: normal respiratory effort, no cough and no stridor Cardio Rhythm: regular rhythm Heart sounds: S1 normal heart sound present and S2 normal heart sound present Skin General skin exam: turgor normal Neuro General: patient oriented x3, tone normal and moves all extremities Extrem Right lower extremity: no edema Left lower extremity: no edema Immunizations pneumoc 20-edi conj-dip cr(PF) 0.5 mL IM syringe Performing Provider: Luis Cifuentes MD Performing Location: [facility] Administered by: Reina Posada CMA on 12/28/23 10:12 Dose Route Admin Location Dispensed Lot Number Expiration Date 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 mL IM Right Tricep 0.5 mL [id number] 09/25/24 [employer] VIS Given Date VIS Provided VIS Publication Date 12/28/23 Single Vaccine 21 Eligibility Eligibility Date Funding Source Not [facility] Eligible 12/28/23 Private Coding Level of Care Code Est Pt Level 4 (60402) Diagnoses Hypertension, essential I10 Lipid disorder E78.9 Pre-diabetes R73.03 Vitamin D deficiency E55.9 Gilbert syndrome E80.4 Additional Codes BELA-7 Assessment Billing - BELA-7 Assessment Tool: BELA-7 Assessment 46754 ([id number]) Assessment & Plan Assessment & Plan (1) Hypertension, essential: Code(s): I10 - Essential (primary) hypertension Category: Medical (2) Lipid disorder: Code(s): E78.9 - Disorder of lipoprotein metabolism, unspecified Category: Medical (3) Pre-diabetes: Code(s): R73.03 - Prediabetes Category: Medical (4) Vitamin D deficiency: Code(s): E55.9 - Vitamin D deficiency, unspecified Category: Medical (5) Gilbert syndrome: Code(s): E80.4 - Gilbert syndrome Category: Medical Plan Patient is 63-year-old gentleman came in today for his regular six-month follow- up appointment He has seen Hematology last month, note reviewed It seems as if his 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 Hematology is keeping an eye on that Patient have a follow-up appointment in six-month, he will have labs before that I have placed order for labs as well patient may have my lab and Hematology Lab at the same time He will present fasting Pneumonia vaccine given today Blood pressure is well-controlled Allergies are controlled patient is on Zyrtec Lipid disorder: Continue atorvastatin 20 mg daily Pre diabetes, controlled diet maintain ideal body weight Vitamin-D deficiency, continue supplement Follow-up 6 months Orders: Orders Complete Blood Count Auto Diff 6 Months E55.9 - Vitamin D deficiency, unspecified, E78.9 - Disorder of lipoprotein metabolism, unspecified, E80.4 - Gilbert syndrome, I10 - Essential (primary) hypertension, R73.03 - Prediabetes Comprehensive [place]. Panel Fast 6 Months E55.9 - Vitamin D deficiency, unspecified, E78.9 - Disorder of lipoprotein metabolism, unspecified, E80.4 - Gilbert syndrome, I10 - Essential (primary) hypertension, R73.03 - Prediabetes Lipid Panel 6 Months E55.9 - Vitamin D deficiency, unspecified, E78.9 - Disorder of lipoprotein metabolism, unspecified, E80.4 - Gilbert syndrome, I10 - Essential (primary) hypertension, R73.03 - Prediabetes Vitamin D 25-OH (D2 and D3) Today E55.9 - Vitamin D deficiency, unspecified Complete Blood Count Auto Diff 5 Months E55.9 - Vitamin D deficiency, unspecified, E78.9 - Disorder of lipoprotein metabolism, unspecified, E80.4 - Gilbert syndrome, I10 - Essential (primary) hypertension, R73.03 - Prediabetes Comprehensive [place]. Panel Fast 5 Months E55.9 - Vitamin D deficiency, unspecified, E78.9 - Disorder of lipoprotein metabolism, unspecified, E80.4 - Gilbert syndrome, I10 - Essential (primary) hypertension, R73.03 - Prediabetes Pneumococcal 20 Immunization Today Z23 - Encounter for immunization Hemoglobin A1c 5 Months E55.9 - Vitamin D deficiency, unspecified, E78.9 - Disorder of lipoprotein metabolism, unspecified, E80.4 - Gilbert syndrome, I10 - Essential (primary) hypertension, R73.03 - Prediabetes Lipid Panel 5 Months E55.9 - Vitamin D deficiency, unspecified, E78.9 - Disorder of lipoprotein metabolism, unspecified, E80.4 - Gilbert syndrome, I10 - Essential (primary) hypertension, R73.03 - Prediabetes Vitamin D 25-OH (D2 and D3) 5 Months E55.9 - Vitamin D deficiency, unspecified, E78.9 - Disorder of lipoprotein metabolism, unspecified, E80.4 - Gilbert syndrome, I10 - Essential (primary) hypertension, R73.03 - Prediabetes
== END 2023-12-28 10:21 | disposition home or self-care (01) ==
PROVIDERS: PCP Internal Medicine; Visit Provider Internal Medicine
DX: I10 Essential (primary) hypertension (principal); E78.9 Disorder of lipoprotein metabolism, unspecified; R73.03 Prediabetes; E55.9 Vitamin D deficiency, unspecified; E80.4 Gilbert syndrome; Z23 Encounter for immunization

== ENCOUNTER → 2023-12-28 09:30 | Outpatient (BNVA) | payer OTHER, MEDICARE, SELFPAY | PROVIDERS: PCP Internal Medicine; Visit Provider Internal Medicine | DX: I10 Essential (primary) hypertension (principal); E78.9 Disorder of lipoprotein metabolism, unspecified; R73.03 Prediabetes; E55.9 Vitamin D deficiency, unspecified; E80.4 Gilbert syndrome; Z79.899 Other long term (current) drug therapy; Z23 Encounter for immunization | CPT/HCPCS: 90471; 90677; 96127 ==

== ENCOUNTER 2024-07-12 15:54 | Outpatient (AMB) | payer OTHER, MEDICARE, SELFPAY ==
--- NOTE | 2024-07-12 16:12 | MHC.OFFWIV ---
Intake Vital Signs 07/12/24 16:13 Weight 187 lb BP 110/70 Blood Pressure Location Rt brachial Position Sitting Pulse 61 Pulse Source Pulse Oximeter Pulse Oximetry (%) 98 Oxygen Delivery Method Room Air Intake Visit Reasons: EP Cut on LT pointer finger Intake Note: Patient here for cut on left pointer finger which happened today while doing wally. 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 No numbness or weakness + slow active bleed Pain with palpation; no pain scale given PFSH Medical History Hyperglycemia High blood pressure Family History Mother Liver cancer Ovarian cancer Social History Household Members: Spouse Housing: House Patient Tobacco Use Status: Former Tobacco user e-Cigarette/Vaping Use: Never Used service: No Current occupational status: unemployed and retired Cognitive needs: No Hearing needs: No Vision needs: Yes Review of Systems Const Denies chills, Denies fatigue and Denies fever(s) Card Denies dyspnea Resp Denies dyspnea Musc Reports deformity (L 2nd digit lac finger) and Denies tingling Skin/Breast Reports other (wound/lac L end digit on hand fingertip) Neuro Denies tingling and Denies paresthesias Endo Denies fatigue Physical Exam Vital Signs: Last Vital Signs Pulse 61 07/12/24 16:13 BP 110/70 07/12/24 16:13 Pulse Ox 98 07/12/24 16:13 Oxygen Delivery Method Room Air 07/12/24 16:13 General: Non-toxic, NAD. Speaking full sentences. Skin: Warm dry throughout L 2nd digit fingertip + lac entending from just distal to ulnar aspect distal nail/fingertip, along ulnar aspect of nail and proximally to DIP joint. + slow active bleed. No visualized FB Eye: EOMI Respiratory: No tachypnea Cardiac: Radial pulse intact. Cap refill L 2nd digit < 2 seconds MSK: + full ROM L 2nd digit finger with flexion/extension Neurology: Alert. No aphasia or facial droop. Gait without abnormality Psych: Good mood and affect Assessment & Plan Assessment & Plan (1) Finger laceration: Code(s): S61.219A - Laceration without foreign body of unspecified finger without damage to nail, initial encounter Qualifiers: Damage to nail status: without damage Encounter type: initial encounter Finger: index finger Foreign body presence: without foreign body Laterality: left Qualified Code(s): S61.211A - Laceration without foreign body of left index finger without damage to nail, initial encounter Plan: verbal consent obtained. L 2nd digit fingertip cleaned with alcohol. Approx 1cc of 2% lidocaine without epi injected surrounding wound. WOund irrigated and no FB seen. Sterile procedure used to approximate wound and proximal end closed with 2 interrupted 5-0 nylong sutures. Distal portion had 1 5-0 nylon interrupted suture placed. Total 3 sutures. Pt tolerated well without complication and bleeding controlld. Bandage and antibiotic ointment applied WOund care instructions given Tday updates Remove sutures in 10-12 days All questions answered prior to discharge Orders: Orders TDaP Immunization Today S61.219A - Laceration without foreign body of unspecified finger without damage to nail, initial encounter Medications: New Boostrix Tdap (diphth,pertus(acell),tetanus) 0.5 mL IM ONCE 0.5 mL 0RF NS S61.219A - Laceration without foreign body of unspecified finger without damage to nail, initial encounter Coding Level of Care Code Est Pt Level 4 (87212) Diagnoses Laceration of left index finger without foreign body without damage to nail, initial encounter S61.211A Damage to nail status: without damage Encounter type: initial encounter Finger: index finger Foreign body presence: without foreign body Laterality: left
[2024-07-12 16:13] VITALS: BP 110/70; PULSE 61; O2SAT 98
== END 2024-07-12 16:56 | disposition home or self-care (01) ==
PROVIDERS: PCP Internal Medicine; Visit Provider Physician Assistant
DX: S61.211A Laceration without foreign body of left index finger without damage to nail, initial encounter (principal)

== ENCOUNTER → 2024-07-12 15:54 | Outpatient (BNVA) | payer OTHER, MEDICARE, SELFPAY | PROVIDERS: PCP Internal Medicine; Visit Provider Physician Assistant | DX: S61.211A Laceration without foreign body of left index finger without damage to nail, initial encounter (principal); Z23 Encounter for immunization; W27.8XXA Contact with other nonpowered hand tool, initial encounter; Y93.89 Activity, other specified; Y92.9 Unspecified place or not applicable; Y99.9 Unspecified external cause status | CPT/HCPCS: 12001; 90471; 90715 ==

== ENCOUNTER 2024-07-21 06:12 | Outpatient (REF) | payer OTHER, MEDICARE, SELFPAY ==
[2024-07-21 10:03] LABS: MANUAL DIFF FLAG NO
[2024-07-21 10:16] LABS: Basophils Absolute Auto 0.1 X10*3/uL (0.0-0.2); Basophils Percent Auto 0.9 % (0-2); Eosinophils Absolute Auto 0.4 X10*3/uL (0.0-0.4); Eosinophils Percent Auto 6.6 % (0-4); Hematocrit 44.1 % (42.0-52.0); Imm Gran Abs Auto 0.02 X10*3/uL (0.00-0.03); Imm Gran Pct Auto 0.4 % (0.0-0.4); Lymphocytes Absolute Auto 1.6 X10*3/uL (1.2-4.9); Lymphocytes Percent Auto 28.4 % (20-40); Mean Corpuscular Hemoglobin 28.2 pg (27.0-33.0); Mean Corpuscular Volume 82.9 fL (80.0-98.0); Mean Platelet Volume 9.8 fL (9.4-12.4); Monocytes Absolute Auto 0.6 X10*3/uL (0.1-1.2); Monocytes Percent Auto 10.5 % (2-11); Neutrophils Percent Auto 53.2 % (45-73); Platelet Count 257 X10*3/uL (160-400); Red Blood Count 5.32 X10*6/uL (4.60-5.80); Red Cell Distribution Width 12.7 % (11.0-16.0); White Blood Count 5.6 X10*3/uL (4.8-10.8)
[2024-07-21 10:25] LABS: Estimated Average Glucose 111 mg/dL; Hemoglobin A1C 144.7233 umol/L; Hemoglobin A1c % 5.5 % (<6.0); Total Hemoglobin (HGBA1C) 3958.5943 umol/L
[2024-07-21 10:49] LABS: Alanine Aminotransferase 38 U/L (0-40); Albumin Level 4.1 g/dL (3.5-5.0); Alkaline Phosphatase 100 U/L (39-117); Anion Gap 9 (12-20); Aspartate Amino Transferase 31 U/L (5-37); Bilirubin Total 1.9 mg/dL (0.0-1.0); Blood Urea Nitrogen 19 mg/dL (9-16); Calcium 9.2 mg/dL (8.4-10.2); Carbon Dioxide 26 mmol/L (22-29); Chloride 104 mmol/L (96-108); Cholesterol 136 mg/dL (<200); Estimated Glomerular Filt Rate > 60; Glucose Fasting 93 mg/dL (60-99); HDL Cholesterol 45 mg/dL (>40); LDL Cholesterol Calculated 73 mg/dL (<100); Potassium 3.8 mmol/L (3.3-5.1); Sodium 135 mmol/L (135-145); Total Protein 6.6 g/dL (6.5-8.0); Triglycerides 94 mg/dL (<150)
[2024-07-26 12:14] LABS: Vitamin D 25-OH, D2 <4 ng/mL; Vitamin D 25-OH, D3 18 ng/mL; Vitamin D 25-OH, Total 18 ng/mL (30-100)
== END 2024-07-21 06:13 | disposition home or self-care (01) ==
LOC: HO.HMGCLDS 06:12
PROVIDERS: PCP Internal Medicine; Visit Provider Internal Medicine
DX: E78.9 Disorder of lipoprotein metabolism, unspecified (principal); I10 Essential (primary) hypertension; R73.03 Prediabetes; E80.4 Gilbert syndrome; E55.9 Vitamin D deficiency, unspecified
CPT/HCPCS: 36415; 80053; 80061; 82306; 83036; 85025

== ENCOUNTER 2024-07-22 09:07 | Outpatient (AMB) | payer OTHER, MEDICARE, SELFPAY ==
[2024-07-22 09:28] VITALS: BP 112/78; PULSE 61; RESP 16; TEMP 36.8; O2SAT 95; BMI 29.0
--- NOTE | 2024-07-22 09:28 | AM.OFFWIN_ITS ---
Intake Vital Signs 07/22/24 09:28 Height 5 ft 7 in Weight 185 lb BMI 29.0 BP 112/78 Blood Pressure Location Rt brachial Position Sitting Respiration 16 Pulse 61 Pulse Source Pulse Oximeter Temp 98.3 F Temp Source Oral Pulse Oximetry (%) 95 Oxygen Delivery Method Room Air Intake Visit Reasons: EP-Removed stitches Intake Note: Pt is here today to have stitches removed on his Lt index finger cutting tile at home Patient Tobacco Use Status: Former Tobacco user Allergies Penicillins Adverse Reaction (Mild, Verified 07/22/24 09:29) Hives Medication List - Last Reconciled 07/22/24 by Raymond Santos MD atorvastatin 20 mg PO DAILY cetirizine (Zyrtec) 10 mg PO DAILY PRN doxycycline hyclate 100 mg PO BID 10 days lisinopril-hydrochlorothiazide 10-12.5 mg 1 tab PO DAILY HPI EP-Removed stitches 2 HPI Details Patient presents to have sutures removed from left 2nd finger after slip box changer laceration 10 days ago. Wound edges are well approximated and healed. No erythema however there is some deep fluctuance. No tenderness PFSH Medical History Hyperglycemia High blood pressure Family History Mother Liver cancer Ovarian cancer Social History Household Members: Spouse Housing: House Patient Tobacco Use Status: Former Tobacco user e-Cigarette/Vaping Use: Never Used service: No Current occupational status: unemployed and retired Cognitive needs: No Hearing needs: No Vision needs: Yes Review of Systems Const Denies chills, Denies fatigue, Denies fever(s), Denies headache(s) and Denies weakness ENT Denies dizziness and Denies headache(s) Card Denies dyspnea Resp Denies cough, Denies dyspnea, Denies wheezing and Denies other ( shortness of breath) Musc Denies numbness and Denies tingling Neuro Denies dizziness, Denies headache(s), Denies numbness, Denies tingling, Denies paresthesias and Denies weakness Psych Denies anxiety and Denies depression Endo Denies fatigue Aller/Immun Denies wheezing Physical Exam Vital Signs: Last Vital Signs Temp 98.3 F 04/26/25 09:28 Pulse 61 07/22/24 09:28 Resp 16 07/22/24 09:28 BP 112/78 07/22/24 09:28 Pulse Ox 95 07/22/24 09:28 Oxygen Delivery Method Room Air 07/22/24 09:28 BMI result Body Mass Index 29.0 Const General: no acute distress and well developed Nutritional Appearance: well nourished Orientation/consciousness: patient oriented x3 HEENT Head: Yes normocephalic and Yes atraumatic Eyes General: appearance normal, both eyes and all related structures Pupils: Equal, round and reactive pupils present EOM: EOMs intact bilaterally Resp Effort & Inspection: normal respiratory effort Skin Other: Posterior aspect of left 2nd finger with healed laceration. However, he does have some deep fluctuance at this site. No erythema or tenderness. Neuro General: patient oriented x3 and gait normal Cranial nerves: Yes Equal, round and reactive pupils present Psych Affect: normal affect Assessment & Plan Assessment & Plan (1) Finger laceration: Code(s): S61.219A - Laceration without foreign body of unspecified finger without damage to nail, initial encounter Qualifiers: Encounter type: initial encounter Finger: index finger Damage to nail status: without damage Foreign body presence: without foreign body Laterality: left Qualified Code(s): S61.211A - Laceration without foreign body of left index finger without damage to nail, initial encounter Plan: Posterior aspect of left 2nd finger with healed laceration. 3 of 3 sutures removed without difficulty. However, he does have some deep fluctuance at this site. No erythema or tenderness. Will have him use warm compresses. Sending a script for doxycycline (allergy to penicillins) Watch for any erythema or streaking Call or return to office if worsening or any new concerning symptoms. Medications: New doxycycline hyclate 100 mg PO BID 10 days 20 tabs 0RF Coding Level of Care Code Est Pt Level 3 (33341) Diagnoses Laceration of left index finger without foreign body without damage to nail, initial encounter S61.211A Encounter type: initial encounter Finger: index finger Damage to nail status: without damage Foreign body presence: without foreign body Laterality: left
== END 2024-07-22 11:09 | disposition home or self-care (01) ==
LOC: HO.HMCWIC 09:07
PROVIDERS: PCP Internal Medicine; Visit Provider Family Medicine
DX: S61.211D Laceration without foreign body of left index finger without damage to nail, subsequent encounter (principal)

== ENCOUNTER → 2024-07-22 09:07 | Outpatient (BNVA) | payer OTHER, MEDICARE, SELFPAY | PROVIDERS: PCP Internal Medicine; Visit Provider Family Medicine | DX: Z13.89 Encounter for screening for other disorder (principal) ==

== ENCOUNTER 2024-07-26 13:51 | Outpatient (AMB) | payer OTHER, MEDICARE, SELFPAY ==
[2024-07-26 13:52] VITALS: BP 118/72; PULSE 69; RESP 17; O2SAT 94; BMI 28.7
--- NOTE | 2024-07-26 13:52 | MHC.PC.OV ---
Vital Signs 07/26/24 13:52 Height 5 ft 7 in Weight 183 lb 6 oz BMI 28.7 BP 118/72 Blood Pressure Location Rt brachial Position Sitting Respiration 17 Pulse 69 Pulse Source Pulse Oximeter Pulse Oximetry (%) 94 Oxygen Delivery Method Room Air Intake Visit Reasons: Annual PE Allergies Penicillins Adverse Reaction (Mild, Verified 07/26/24 13:54) Hives Medication List - Last Reconciled 07/26/24 by Luis Cifuentes MD atorvastatin 20 mg PO DAILY cetirizine (Zyrtec) 10 mg PO DAILY PRN doxycycline hyclate 100 mg PO BID 10 days lisinopril-hydrochlorothiazide 10-12.5 mg 1 tab PO DAILY Tobacco use date assessed: 07/26/24 Fall risk assessment: No Falls in past year Last assessed Fall Risk: 07/26/24 Dental Screening Dental Screen Date: 07/26/24 Did you have a dental visit in the last 12 months?: Yes Did you have a dental problem in the last 6 months where you did not have access to dental care?: No Was dental information given to patient?: Patient has dentist HPI Annual PE HPI Details Patient is 63-year-old male came in today physical examination He tells me that colonoscopy was [address] [facility] and it was normal next 1 will be in 2030 At that time patient also had cardiac stress test which was normal as well, I do not have reports of either. Patient have a history of Gilbert's syndrome Pre diabetes Hypertension Lipid disorder Vitamin-D deficiency He is taking atorvastatin 20 mg Lisinopril hydrochlorothiazide 10-12.5 mg, blood pressure is well controlled. He had laceration left index finger distal phalanx, occurred on April 13, with sutures placed and subsequently removed on April 23. - The patient reported some skin puffiness at the site of laceration, which was of concern to a prior provider. - An antibiotic, Doxycycline, had been previously prescribed though there is no current indication of infection at the site. - The patient was found to have low Vitamin D levels and is advised to take oral supplements. 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 - Formerly worked in the [employer] industry for 30 years. Diagnostic results - Labs: Kidney functions are normal, and liver enzymes are stable. - Blood sugar and cholesterol levels are in the desirable range. - Vitamin D level is noted as low. Patient Instructions - Take one capsule of Vitamin D (1000 units) daily, available [id number]. - Discontinue the use of Doxycycline as there is no infection present. It is causing diarrhea and stomach upset - Maintain good blood pressure and lipid control by continuing prescribed medications. - Return in six months for follow-up and bring lab results prior to the visit. - Keep the laceration area clean, file the nail if bothersome - Wear knee pads when engaging in wally work. - Seek medical attention if new or worsening symptoms arise. Review of Systems - General: No fever no chills - Neurological: No headaches no dizziness - Ear nose throat: No sore throat no hearing difficulty no ear pain - Cardiovascular: No syncope, no chest pain, no palpitations - Gastrointestinal: No nausea vomiting or diarrhea - Endocrine: No polyuria polydipsia no heat intolerance - Genitourinary: No dysuria - Skin: No new complaints Physical Exam General: Cooperative, healthy appearing, comfortable, no acute distress Orientation: Patient oriented x3 Head: Normal to inspection Ears: Within normal limit visually Nose: Normal external nose present Face and sinus: Normal facial exam Eyes: Appearance normal, extraocular movement intact pupils reactive Neck: Normal visual inspection and supple Respiratory: Normal respiratory effort and able to speak in complete sentences. Clear to auscultation, no stridor Cardiovascular: S1 and S2 RRR GI: Normal to inspection. Soft to palpation and nontender Skin: Turgor normal, no acute findings Neuro: Patient oriented x3, motor sensory intact, balance intact, tandem pass Extremities: Range of motion. [facility] Medical History Hyperglycemia High blood pressure Family History Mother Liver cancer Ovarian cancer Social History Household Members: Spouse Housing: House Patient Tobacco Use Status: Former Tobacco user e-Cigarette/Vaping Use: Never Used service: No Current occupational status: unemployed and retired Cognitive needs: No Hearing needs: No Vision needs: Yes Questionnaire PHQ-9 Over the last 2 weeks, how often have you been bothered by any of the following problems? 1. Little interest or pleasure in doing things: not at all 2. Feeling down, depressed, or hopeless: not at all 3. Trouble falling or staying asleep, or sleeping too much: not at all 4. Feeling tired or having little energy: not at all 5. Poor appetite or overeating: not at all 6. Feeling bad about yourself - or that you are a failure or have let yourself or your family down: not at all 7. Trouble concentrating on things, such as reading the newspaper or watching television: not at all 8. Moving or speaking so slowly that other people could have noticed. Or the opposite - being so fidgety or restless that you have been moving around a lot more than usual: not at all 9. Thoughts that you would be better off or of hurting yourself in some way: not at all Total score: 0 Depression Screening Interpretation: Negative Depression Screening Done: Yes 73812 - PHQ-9 Billing: Yes Source: Developed by Drs. Abhijeet Carlisle, Saloni Spencer, Tevin Locke and colleagues, with an educational soniya from [employer]. Thrive Questionnaire Date Thrive assessed: 07/18/24 I am a: Patient What is your living situation today?: I have a steady place to live Within the past 12 months, did the food you bought not last and you didn't have the money to get more?: Never true Within the past 12 months, did you worry whether your food would run out before you got money to buy more?: Never true Do you have trouble paying for medicines?: No Do you have trouble getting transportation to medical appointments?: No Do you have trouble paying your heating and electricity bill?: No Do you have trouble taking care of your child, family member or friend?: No Do you have trouble with day-to-day activities such as bathing, preparing meals, shopping, managing finances, etc.?: No Are you currently unemployed and looking for a job?: No Are you interested in more education?: No Please select the resources that you would like help with: None Currently or been in a relationship where the following occur: No concerns reported THRIVE Score: 0 AUDIT C Alcohol Use Questionnaire (AUDIT-C) 1. How often do you have a drink containing alcohol?: 2-4 times a month 2. How many drinks containing alcohol do you have on a typical day when you are drinking?: 1 or 2 3. How often do you have six or more drinks on one occasion?: Never Total Score: 2 Score Reviewed/Action Taken: Yes BELA-7 AMB Questionnaire BELA-7 Date BELA - 7 assessed: 07/26/24 Feeling nervous, anxious, or on edge: 0 = Not at all Not being able to stop or control worryin = Not at all Worrying too much about different things: 0 = Not at all Trouble relaxin = Not at all Being so restless that it is hard to sit still: 0 = Not at all Becoming easily annoyed or irritable: 0 = Not at all Feeling afraid as if something awful might happen: 0 = Not at all Total BELA-7 score (0-4 normal; 5-9 mild; 10-14 moderate; 15-21 severe): 0 Source: Developed by Drs. Abhijeet Carlisle, Saloni Spencer, Tevin Locke and colleagues, with an educational soniya from [employer]. BELA-7 Assessment Billing BELA-7 Assessment Tool: BELA-7 Assessment 32335 Physical exam (Primary Care) Vital Signs: Last Vital Signs Pulse 69 07/26/24 13:52 Resp 17 07/26/24 13:52 BP 118/72 07/26/24 13:52 Pulse Ox 94 07/26/24 13:52 Oxygen Delivery Method Room Air 07/26/24 13:52 BMI result Body Mass Index 28.7 Tobacco/Smoking Status: Tobacco use Status Tobacco use date assessed 07/26/24 07/26/24 13:57 Patient Tobacco Use Status Former Tobacco user 07/26/24 13:54 e-Cigarette/Vaping Use Never Used 07/26/24 13:54 PHQ-9: PHQ-9 Score PHQ-9: Total score 0 07/26/24 13:57 Depression Screening Interpretation: Negative Thrive Assessment: Date of Thrive Assessment Date Thrive assessed 07/18/24 07/26/24 13:54 Currently or been in a relationship where the following occur: No concerns reported Coding Level of Care Code Est Pt Level 3 (28145) Est Pt Prev Care >65y(03155) Diagnoses Encounter for general adult medical examination with abnormal findings Z00.01 Injury of finger of left hand S69.92XA Hypertension, essential I10 Lipid disorder E78.9 Additional Codes BELA-7 Assessment Billing - BELA-7 Assessment Tool: BELA-7 Assessment 25767 ([id number]) PHQ-9 - 53490 - PHQ-9 Billing: Yes ([id number]) Assessment & Plan Assessment & Plan (1) Encounter for general adult medical examination with abnormal findings: Code(s): Z00.01 - Encounter for general adult medical examination with abnormal findings Category: Medical (2) Injury of finger of left hand: Code(s): S69.92XA - Unspecified injury of left wrist, hand and finger(s), initial encounter Category: Medical (3) Hypertension, essential: Code(s): I10 - Essential (primary) hypertension Category: Medical (4) Lipid disorder: Code(s): E78.9 - Disorder of lipoprotein metabolism, unspecified Category: Medical Plan Patient is 63-year-old male came in today physical examination He tells me that colonoscopy was [address] [facility] and it was normal next 1 will be in 2030 At that time patient also had cardiac stress test which was normal as well, I do not have reports of either. Patient have a history of Gilbert's syndrome Pre diabetes Hypertension Lipid disorder Vitamin-D deficiency He is taking atorvastatin 20 mg Lisinopril hydrochlorothiazide 10-12.5 mg, blood pressure is well controlled. He had laceration left index finger distal phalanx, occurred on April 13, with sutures placed and subsequently removed on April 23. - The patient reported some skin puffiness at the site of laceration, which was of concern to a prior provider. - An antibiotic, Doxycycline, had been previously prescribed though there is no current indication of infection at the site. - The patient was found to have low Vitamin D levels and is advised to take oral supplements. 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 - Formerly worked in the [employer] industry for 30 years. Diagnostic results - Labs: Kidney functions are normal, and liver enzymes are stable. - Blood sugar and cholesterol levels are in the desirable range. - Vitamin D level is noted as low. Patient Instructions - Take one capsule of Vitamin D (1000 units) daily, available [id number]. - Discontinue the use of Doxycycline as there is no infection present. It is causing diarrhea and stomach upset - Maintain good blood pressure and lipid control by continuing prescribed medications. - Return in six months for follow-up and bring lab results prior to the visit. - Keep the laceration area clean, file the nail if bothersome - Wear knee pads when engaging in wally work. - Seek medical attention if new or worsening symptoms arise.
== END 2024-07-26 14:23 | disposition home or self-care (01) ==
LOC: HO.HMCC 13:52
PROVIDERS: PCP Internal Medicine; Visit Provider Internal Medicine
DX: Z00.01 Encounter for general adult medical examination with abnormal findings (principal); S69.92XA Unspecified injury of left wrist, hand and finger(s), initial encounter; I10 Essential (primary) hypertension; E78.9 Disorder of lipoprotein metabolism, unspecified

== ENCOUNTER → 2024-07-26 13:51 | Outpatient (BNVA) | payer OTHER, MEDICARE, SELFPAY | PROVIDERS: PCP Internal Medicine; Visit Provider Internal Medicine | DX: Z00.00 Encounter for general adult medical examination without abnormal findings (principal); I10 Essential (primary) hypertension; E78.9 Disorder of lipoprotein metabolism, unspecified | CPT/HCPCS: 96127 ==

== ENCOUNTER 2025-01-17 06:07 | Outpatient (REF) | payer OTHER, MEDICARE, SELFPAY ==
[2025-01-17 10:40] LABS: MANUAL DIFF FLAG NO
[2025-01-17 10:51] LABS: Hematocrit 44.9 % (42.0-52.0); Hemoglobin 15.0 g/dl (14.0-18.0); Imm Gran Abs Auto 0.02 X10*3/uL (0.00-0.03); Imm Gran Pct Auto 0.3 % (0.0-0.4); Lymphocytes Absolute Auto 1.8 X10*3/uL (1.2-4.9); Mean Corpuscular HGB Conc 33.4 g/dl (31.0-36.0); Mean Corpuscular Hemoglobin 28.0 pg (27.0-33.0); Mean Corpuscular Volume 83.9 fL (80.0-98.0); NRBC Abs Auto 0.000 X10*3/uL (0.0-0.012); NRBC Pct Auto 0.0 /100WBC (0.0-0.2); Platelet Count 254 X10*3/uL (160-400); Red Blood Count 5.35 X10*6/uL (4.60-5.80); White Blood Count 6.3 X10*3/uL (4.8-10.8)
[2025-01-17 11:16] LABS: Alanine Aminotransferase 35 U/L (0-40); Albumin Level 4.4 g/dL (3.5-5.0); Alkaline Phosphatase 99 U/L (39-117); Anion Gap 11 (12-20); Aspartate Amino Transferase 27 U/L (5-37); Blood Urea Nitrogen 21 mg/dL (9-16); Calcium 8.9 mg/dL (8.4-10.2); Carbon Dioxide 25 mmol/L (22-29); Chloride 107 mmol/L (96-108); Cholesterol 137 mg/dL (<200); Estimated Glomerular Filt Rate > 60; HDL Cholesterol 39 mg/dL (>40); Potassium 3.9 mmol/L (3.3-5.1); Sodium 139 mmol/L (135-145); Total Protein 6.7 g/dL (6.5-8.0); Triglycerides 96 mg/dL (<150)
== END 2025-01-17 06:08 | disposition home or self-care (01) ==
LOC: HO.HMGCLDS 06:07
PROVIDERS: PCP Internal Medicine; Visit Provider Internal Medicine
DX: I10 Essential (primary) hypertension (principal); E55.9 Vitamin D deficiency, unspecified; E78.9 Disorder of lipoprotein metabolism, unspecified; E80.4 Gilbert syndrome; R73.03 Prediabetes
CPT/HCPCS: 36415; 80053; 80061; 85025

== ENCOUNTER 2025-01-23 09:00 | Outpatient (AMB) | payer OTHER, MEDICARE, SELFPAY ==
--- NOTE | 2025-01-23 09:02 | A.OFFPC_ITS ---
Vital Signs 01/23/25 09:03 Height 5 ft 7 in Weight 186 lb 8 oz BMI 29.2 BP 124/78 Blood Pressure Location Lt brachial Position Sitting Respiration 16 Pulse 67 Pulse Source Pulse Oximeter Temp 97.5 F Temp Source Oral Pulse Oximetry (%) 93 Oxygen Delivery Method Room Air Intake Visit Reasons: 6m follow up Allergies Penicillins Adverse Reaction (Mild, Verified 12/21/24 09:14) Hives Medication List - Last Reconciled 01/23/25 by Luis Ciufentes MD aspirin atorvastatin 20 mg PO DAILY cetirizine (Zyrtec) 10 mg PO DAILY PRN lisinopril-hydrochlorothiazide 10-12.5 mg 1 tab PO DAILY vit [id number]-hkvdvebxo-euae-theanine 50 mcg-15 mg- 25 mg-250 mg caps PO Tobacco use date assessed: 07/26/24 Dental Screening Dental Screen Date: 07/26/24 HPI 6m follow up HPI Details History of Present Illness The patient is a 64-year-old male presenting with a six-month follow-up appointment Hypertension: - Blood pressure consistently well-contr olled with current medication regimen. - No reported side effects from hyperten sive medication. Hyperlipidemia: - Reported to be well-controlled with at orvastatin. - No reported side effects from choleste rol medication. Vitamin D deficiency: - Previously noted low Vitamin D levels. - Currently advised to take oral Vitamin D supplements. Gilbert syndrome: - Chronic condition with elevated biliru bin levels noted. Prediabetes: - No acute issues reported during conver sation. - Regular monitoring recommended. 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 - Formerly worked in the [employer] for 30 years. Health Maintenance - Recent flu and COVID vaccinations rece ived, including senior dose versions. - Vitamin D supplementation of 1000 unit s daily recommended. - Blood pressure well-controlled at 124/ 78. - Lab results indicated normal CBC, elec trolyte stability, creatinine 0.97, GFR > 60, total bilirubin 1.4, and LDL 79. - BMI 29.2; [facility] Medications - Atorvastatin 20 mg for hyperlipidemia. - Lisinopril 10 mg with hydrochlorothiaz kaylin 12.5 mg for hypertension. - Aspirin for preventative cardiovascula r health. - Qltg-qur-iepdokl allergy medication an d nasal spray. Patient Instructions - Take Vitamin D 1000 units daily. - Continue current medications for blood pressure and cholesterol control. - Schedule return visit in six months lab results. Review of Systems - General: No fever no chills - Neurological: No headaches no dizzin ess - Ear nose throat: No sore throat no hearing difficulty no ear pain - Cardiovascular: No syncope, no chest pain, no palpitations - Gastrointestinal: No nausea vomiting or diarrhea - Endocrine: No polyuria polydipsia no heat intolerance - Genitourinary: No dysuria - Skin: No new complaints Physical Exam General: Cooperative, healthy appearing, comfortable, no acute distress Orientation: Patient oriented x3 Head: Normal to inspection Ears: Within normal limit visually Nose: Normal external nose present Face and sinus: Normal facial exam Eyes: Appearance normal, extraocular movement intact pupils reactive Neck: Normal visual inspection and supple Respiratory: Normal respiratory effort and able to speak in complete sentences. Clear to auscultation, no stridor Cardiovascular: S1 and S2 GI: Normal to inspection. Soft to palpation and nontender Skin: Turgor normal, no acute findings Neuro: Patient oriented x3, motor sensory intact Extremities: Normal to inspection PFSH Medical History Hyperglycemia High blood pressure Family History Mother Liver cancer Ovarian cancer Social History Household Members: Spouse Housing: House Patient Tobacco Use Status: Former Tobacco user e-Cigarette/Vaping Use: Never Used service: No Current occupational status: unemployed and retired Cognitive needs: No Hearing needs: No Vision needs: Yes Questionnaire Thrive Questionnaire Date Thrive assessed: 07/18/24 I am a: Patient What is your living situation today?: I have a steady place to live Within the past 12 months, did the food you bought not last and you didn't have the money to get more?: Never true Within the past 12 months, did you worry whether your food would run out before you got money to buy more?: Never true Do you have trouble paying for medicines?: No Do you have trouble getting transportation to medical appointments?: No Do you have trouble paying your heating and electricity bill?: No Do you have trouble taking care of your child, family member or friend?: No Do you have trouble with day-to-day activities such as bathing, preparing meals, shopping, managing finances, etc.?: No Are you currently unemployed and looking for a job?: No Are you interested in more education?: No Please select the resources that you would like help with: None Currently or been in a relationship where the following occur: No concerns reported THRIVE Score: 0 BELA-7 AMB Questionnaire BELA-7 Date BELA - 7 assessed: 07/26/24 Source: Developed by Drs. Abhijeet Carlisle, Saloni Sepncer, Tevin Locke and colleagues, with an educational soniya from [employer]. Physical exam (Primary Care) Vital Signs: Last Vital Signs Temp 97.5 F 01/23/25 09:03 Pulse 67 01/23/25 09:03 Resp 16 01/23/25 09:03 BP 124/78 01/23/25 09:03 Pulse Ox 93 01/23/25 09:03 Oxygen Delivery Method Room Air 01/23/25 09:03 BMI result Body Mass Index 29.2 Tobacco/Smoking Status: Tobacco use Status Tobacco use date assessed 07/26/24 01/23/25 09:08 Patient Tobacco Use Status Former Tobacco user 01/23/25 09:08 e-Cigarette/Vaping Use Never Used 01/23/25 09:08 Thrive Assessment: Date of Thrive Assessment Date Thrive assessed 07/18/24 01/23/25 09:08 Currently or been in a relationship where the following occur: No concerns reported Coding Level of Care Code Est Pt Level 4 (69840) Diagnoses Lipid disorder E78.9 Hypertension, essential I10 Pre-diabetes R73.03 Vitamin D deficiency E55.9 Gilbert syndrome E80.4 Assessment & Plan Assessment & Plan (1) Lipid disorder: Code(s): E78.9 - Disorder of lipoprotein metabolism, unspecified Category: Medical (2) Hypertension, essential: Code(s): I10 - Essential (primary) hypertension Category: Medical (3) Pre-diabetes: Code(s): R73.03 - Prediabetes Category: Medical (4) Vitamin D deficiency: Code(s): E55.9 - Vitamin D deficiency, unspecified Category: Medical (5) Gilbert syndrome: Code(s): E80.4 - Gilbert syndrome Category: Medical Plan Hypertension: - Blood pressure consistently well-controlled with current medication regimen. - No reported side effects from hypertensive medication. Hyperlipidemia: - Reported to be well-controlled with atorvastatin. - No reported side effects from cholesterol medication. Vitamin D deficiency: - Previously noted low Vitamin D levels. - Currently advised to take oral Vitamin D supplements. Gilbert syndrome: - Chronic condition with elevated bilirubin levels noted. Prediabetes: - No acute issues reported during conversation. - Regular monitoring recommended. 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 Health Maintenance - Recent flu and COVID vaccinations received, including senior dose versions. - Vitamin D supplementation of 1000 units daily recommended. - Blood pressure well-controlled at 124/78. - Lab results indicated normal CBC, electrolyte stability, creatinine 0.97, GFR > 60, total bilirubin 1.4, and LDL 79. - BMI 29.2; weight loss discussed as a health maintenance goal. Medications - Atorvastatin 20 mg for hyperlipidemia. - Lisinopril 10 mg with hydrochlorothiazide 12.5 mg for hypertension. - Aspirin for preventative cardiovascular health. - Whlc-wtv-ghtlkzr allergy medication and nasal spray. Patient Instructions - Take Vitamin D 1000 units daily. - Continue current medications for blood pressure and cholesterol control. - Schedule return visit in six months with lab results. Orders: Orders [facility] [place]. Panel Fast Today E55.9 - Vitamin D deficiency, unspecified, E78.9 - Disorder of lipoprotein metabolism, unspecified, E80.4 - Gilbert syndrome, I10 - Essential (primary) hypertension, R73.03 - Prediabetes Vitamin D 25-OH (D2 and D3) Today E55.9 - Vitamin D deficiency, unspecified, E78.9 - Disorder of lipoprotein metabolism, unspecified, E80.4 - Gilbert syndrome, I10 - Essential (primary) hypertension, R73.03 - Prediabetes Hemoglobin A1c Today E55.9 - Vitamin D deficiency, unspecified, E78.9 - Disorder of lipoprotein metabolism, unspecified, E80.4 - Gilbert syndrome, I10 - Essential (primary) hypertension, R73.03 - Prediabetes Complete Blood Count Auto Diff Today E55.9 - Vitamin D deficiency, unspecified, E78.9 - Disorder of lipoprotein metabolism, unspecified, E80.4 - Gilbert syndrome, I10 - Essential (primary) hypertension, R73.03 - Prediabetes Lipid Panel Today E55.9 - Vitamin D deficiency, unspecified, E78.9 - Disorder of lipoprotein metabolism, unspecified, E80.4 - Gilbert syndrome, I10 - Essential (primary) hypertension, R73.03 - Prediabetes Medications: Refilled lisinopril-hydrochlorothiazide 10-12.5 mg 1 tab PO DAILY 90 tabs 0RF atorvastatin 20 mg PO DAILY 90 tabs 0RF
[2025-01-23 09:03] VITALS: BP 124/78; PULSE 67; RESP 16; TEMP 36.4; O2SAT 93; BMI 29.2
== END 2025-01-23 10:16 | disposition home or self-care (01) ==
LOC: HO.HMCC 09:01
PROVIDERS: PCP Internal Medicine; Visit Provider Internal Medicine
DX: E78.9 Disorder of lipoprotein metabolism, unspecified (principal); I10 Essential (primary) hypertension; R73.03 Prediabetes; E55.9 Vitamin D deficiency, unspecified; E80.4 Gilbert syndrome